=== PATIENT | male | born 1970 | race Caucasian/White ===

== ENCOUNTER 2018-05-15 09:40 | Day surgery (SDC) | payer OTHER ==
[~2018-05-15] VITALS: Ht 172.7 cm; Wt 92.5 kg
[~2018-05-15 09:40] MED LIST: ADVAIR 250-501 EACH INH; ALBUTEROL2.5 MG/3 M INH; BREO ELLIPTA I1 EACH INH; CHOLESTEROL MA1 EACH PO; CRUTCH1 EACH; DEPO-TESTO200 MG/1 M IM; DILTIAZEM ER180 MG PO; GEMFIBROZIL600 MG PO; IBUPROFEN600 MG PO; NORCO 5-325 TA1 EACH PO; SIMVASTATIN10 MG PO; TRAMADOL HCL50 MG PO
--- NOTE | 2018-05-15 12:34 | NUR ---
05/15/[address] IS AT THE BEDSIDE AND PATIENT'S QUESTIONS ARE ANSWERED.
--- NOTE | 2018-05-15 14:04 | OR ---
[facility] [address], [place] [address] Signed DATE OF OPERATION: 05/15/2018 SURGEON: Concepcion Rivera MD PREOPERATIVE DIAGNOSES: 1. Symptomatic reflux. 2. Colon screening. POSTOPERATIVE DIAGNOSES: 1. Sigmoid and left-sided diverticulosis. 2. Bulbar duodenitis. No evidence of esophagitis. No sign of hiatal hernia. PROCEDURES PERFORMED: 1. Esophagogastroduodenoscopy with biopsy. 2. Total colonoscopy to the cecum. ANESTHESIA: Intravenous sedation with fentanyl 200 mcg and Versed 9 mg (total). INDICATIONS FOR PROCEDURE: This 48-year-old white man, formerly a patient of Dr. Jus Ball and more recently Dr. Timmons and has had longstanding reflux type symptoms including nocturnal aspiration symptoms and so on. He has been variably benefitted by H2 steve and even PPI medication from [id number]. He has no dysphagia. Upper endoscopy has been considered on the basis of his reflux symptoms of long-standing, but without other formal evaluation. Additionally, the patient is of age for screening colonoscopy. He has no blood per rectum or diarrhea or constipation. He does have family history of colon cancer in his father, who is alive and well at age 69 with the disease. He understands the risks of upper endoscopy and colonoscopy including, but not limited to bleeding, infection, and perforation, and wished to proceed. FINDINGS: On upper endoscopy, the esophagus appeared normal. There was no sign of stricture, neoplasm, Bland's epithelium, or other issue. The flap valve was quite good actually. There was mild gastritis, certainly no ulceration. There was definitely inflammatory change of the bulbar duodenum, but no sign of ulceration. CLOtest was negative 30 minutes post procedure. Electronically Signed By: CONCEPCION RIVERA MD 05/15/18 1404 PATIENT NAME: JOHN AVILA OPERATIVE REPORT DATE OF : 66 REPORT #: [id number] PHYSICIAN: CONCEPCION RIVERA MD PCP: JUS BALL MD REPORT IS CONFIDENTIAL AND NOT TO BE RELEASED WITHOUT AUTHORIZATION [facility] [address], [place] [address] Signed On colonoscopy, the prep was adequate, but not great. With irrigation, good examination was undertaken. There were numerous diverticula of the sigmoid and left colon. No sign of stricture, neoplasm, polyps, or other issue. DESCRIPTION OF PROCEDURE: The patient was brought to the endoscopy suite and placed in lateral decubitus position after undergoing topical Hurricaine spray hypopharyngeal anesthesia. A bite block was placed. An Olympus video upper endoscope was passed in the hypopharynx. The vocal cords were visualized and found to be normal. The scope was advanced to the esophagus without problem; throughout its length, it was normal. Scope was passed to the stomach, which was insufflated with air. Rugal folds appeared normal as did the pylorus. The scope was passed through the pylorus into the duodenum. The second and third portions were reasonably normal. They were biopsied to assess for celiac disease and the bulbar portion examined and found to have duodenitis, but no sign of erosion or ulcer. Biopsies were obtained there as well. The scope was withdrawn to the stomach for biopsies of the antrum for both ALESSANDRA and pathologic testing. The mid stomach appeared to be minimally inflamed. The retroflexed view showed a normal flap valve overall. Various maneuvers in retroflexed position to thwart the flap valve were unsuccessful. The scope was withdrawn to the distal esophagus, confirming it to be normal. There was no sign of Bland's epithelium or other issue. Biopsies were obtained nevertheless given his clinical symptoms. Further withdrawal of the scope showed no other abnormality including the proximal esophagus. Plans were then made for colonoscopy. The table was rotated. Additional sedation was given. Digital rectal examination was normal. An Olympus video colonoscope was passed in the rectum and manipulated throughout the colon ultimately intubating the cecum itself. The ileocecal valve and appendiceal orifice were normal. Irrigation was undertaken as the prep was not as clear as one would hope for, but it was certainly adequate for the purpose. Irrigation was undertaken upon withdrawal of scope and with careful and thorough examination, colonic mucosa examined thoroughly. There were no evidence of polyps. There were diverticular changes of the sigmoid and left colon. Photographs were taken. Retroflexed view of the rectum was normal. Scope was removed. The patient was taken to recovery room in good condition. CONCLUDING DIAGNOSES: 1. Bulbar duodenitis. No evidence of esophagitis. 2. Diverticular changes of sigmoid and left colon. PLAN: We will initiate Prilosec 20 mg p.o. daily. We will see him back in 6 to 8 weeks and assess his clinical response to this medication for both duodenitis and clinical reflux type symptoms. Recommend high-fiber diet and repeat colonoscopy in 10 years Electronically Signed By: CONCEPCION RIVERA MD 05/15/18 1404 PATIENT NAME: JOHN AVILA OPERATIVE REPORT DATE OF : 66 REPORT #: [id number] PHYSICIAN: CONCEPCION RIVERA MD PCP: JUS BALL MD REPORT IS CONFIDENTIAL AND NOT TO BE RELEASED WITHOUT AUTHORIZATION [facility] [address] [place] [address] Signed or sooner if clinically indicated. MD MOIRA Burgos/ISABEL /[id number] cc: MD Irving Ding DO Copies: JUS BALL MD, FRANK E DO ~ Electronically Signed By: CONCEPCION RIVERA MD 05/15/18 1404 PATIENT NAME: MARGARITAJOHN CONCEPCION OPERATIVE REPORT DATE OF : 66 REPORT #: [id number] PHYSICIAN: CONCEPCION RIVERA MD PCP: JUS BALL MD REPORT IS CONFIDENTIAL AND NOT TO BE RELEASED WITHOUT AUTHORIZATION
== END 2018-05-15 13:00 | disposition home or self-care (01) ==
LOC: DS 09:40 → OPS 09:40 → DS 11:00 → OPS 13:00
PROVIDERS: Surgery
PROC: 0DB78ZX Excision of Stomach, Pylorus, Via Natural or Artificial Opening Endoscopic, Diagnostic (ICD-10-PCS; 2018-05-15)
PROC: 0DB68ZX Excision of Stomach, Via Natural or Artificial Opening Endoscopic, Diagnostic (ICD-10-PCS; 2018-05-15)
PROC: 0DB38ZX Excision of Lower Esophagus, Via Natural or Artificial Opening Endoscopic, Diagnostic (ICD-10-PCS; 2018-05-15)
PROC: 0DJD8ZZ Inspection of Lower Intestinal Tract, Via Natural or Artificial Opening Endoscopic (ICD-10-PCS; principal; 2018-05-15 11:00)
PROC: 0DB98ZX Excision of Duodenum, Via Natural or Artificial Opening Endoscopic, Diagnostic (ICD-10-PCS; 2018-05-15 11:00)
DX: Z12.11 Encounter for screening for malignant neoplasm of colon (principal); K57.30 Diverticulosis of large intestine without perforation or abscess without bleeding; K29.50 Unspecified chronic gastritis without bleeding; K29.80 Duodenitis without bleeding; K21.0 Gastro-esophageal reflux disease with esophagitis; I10 Essential (primary) hypertension; J45.20 Mild intermittent asthma, uncomplicated; Z88.0 Allergy status to penicillin; Z80.0 Family history of malignant neoplasm of digestive organs; Z88.8 Allergy status to other drugs, medicaments and biological substances; Z83.71 Family history of colonic polyps
CPT/HCPCS: 99153; G0500; J2250; J3010; J7120

== ENCOUNTER 2020-06-02 02:18 | Emergency (ER) | payer OTHER ==
[~2020-06-02] VITALS: Ht 172.7 cm; Wt 92.5 kg
--- OUTSIDE RECORDS SUMMARY | ~2020-06-02 | XMS | Encounter Summary ---
Demographics + + + | Address | [address] | | | [place] [address] | + + + | Home Phone | | + + + | Preferred Language | Unknown | + + + | Marital Status | | + + + | Scientology Affiliation | 1077 | + + + | Race | Unknown | + + + | Ethnic Group | Unknown | + + + Author + + + | Author | [facility] | | | and [place] | + + + | Organization | [facility] | | | and [place] | + + + | Address | Unknown | + + + | Phone | Unavailable | + + + Support + + +---------+ + | Name | Relationship | Address | Phone | + + +---------+ + | Ninfa Prieto | ECON | Unknown | | + + +---------+ + Care Team Providers + +------+ + | Care Supplier Quality Manager Name | Role | Phone | + +------+ + PCP | Unavailable | + +------+ + Encounter Details +--------+ + + + + | Date | Type | Department | Care Team | Description | +--------+ + + + + | 12/09/ | Hospital | [facility] | Conversion | Pain | | 2017 | Encounter | CONVERSION [address] | Transaction, | | | | | [address] | Provider Unknown | | | | | [place] | [phone] | | | | | [phone] | | | | | | [phone] | | | +--------+ + + + + Social History + +-------+ +--------+------+ | Tobacco Use | Types | Packs/Day | Years | Date | | | | | Used | | + +-------+ +--------+------+ | Never Assessed | | | | | + +-------+ +--------+------+ + + + | Sex Assigned at | Date Recorded | | | | + + + | Not on file | | + + + documented as of this encounter Plan of Treatment Not on filedocumented as of this encounter Procedures + +--------+ + + + | Procedure Name | Priori | Date/Time | Associated Diagnosis | Comments | | | ty | | | | + +--------+ + + + | XR CHEST 2 VIEWS | Routin | 10/31/2016 | | Results for this | | | e | 11:37 PM | | procedure are in the | | | | PST | | results section. | + +--------+ + + + documented in this encounter Results XR Chest 2 Vws (10/31/2016 11:37 PM PST) + + | Specimen | + + | | + + + + + | Narrative | Performed At | + + + | This is a non-reportable procedure without a radiologist report and | | | is used for image storage only | | + + + + + | Procedure Note | + + | Jose Eduardo Agosto Conversion - 07/08/2019 6:18 AM PDT This is a non-reportable procedure | | without a radiologist report and isused for image storage only | + + documented in this encounter Visit Diagnoses + + | Diagnosis | + + | Pain Generalized pain | + + documented in this encounter"
--- OUTSIDE RECORDS SUMMARY | ~2020-06-02 | XMS | Encounter Summary ---
Demographics + + + | Address | [address] | | | [place] [address] | + + + | Home Phone | | + + + | Preferred Language | Unknown | + + + | Marital Status | | + + + | Hoahaoism Affiliation | 1077 | + + + | Race | Unknown | + + + | Ethnic Group | Unknown | + + + Author + + + | Author | [facility] | | | and [place] | + + + | Organization | [facility] | | | and [place] | [...] Team Providers + +------+ + | Care X Ray Electronics Wiring Technician Name | Role | Phone | + +------+ + PCP | Unavailable | + +------+ + Encounter Details +--------+ + + + + | Date | Type | Department | Care Team | Description | +--------+ + + + + | 12/09/ | Hospital | [facility] | Conversion | Diagnosis unknown | | 2017 | Encounter | CONVERSION [address] | Transaction, | | | | | [address] | Provider Unknown | | | | | [place] | | | | | | [phone] | (Fax) | | | | | [phone] | | | +--------+ + + + [...] for this | | | e | 10:12 AM | | procedure are in the | | | | PST | | results section. | + +--------+ + + + documented in this encounter Results XR Chest 2 Vws (10/31/2016 10:12 AM PST) + + | Specimen | + + | | + + + + + | Narrative | Performed At | + + + | This is a non-reportable procedure without a radiologist report and | | | is used for image storage only | | + + + + + | Procedure Note | + + | Surendra Jose Eduardo Conversion - 07/08/2019 6:18 AM PDT This is a non-reportable procedure | | without a radiologist report and isused for image storage only | + + documented in this encounter Visit Diagnoses + + | Diagnosis | + + | Diagnosis unknown Other unknown and unspecified cause of morbidity or mortality | + + documented in this encounter"
--- OUTSIDE RECORDS SUMMARY | ~2020-06-02 | XMS | Encounter Summary ---
Demographics + + + | Address | [address] | | | [place] [address] | + + + | Home Phone | | + + + | Preferred Language | Unknown | + + + | Marital Status | | + + + | Religion Affiliation | 1077 | + + + | Race | Unknown | + + + | Ethnic Group | Unknown | + + + Author + + + | Author | [facility] | | | and [place] | + + + | Organization | [facility] | | | and [...] Team Providers + +------+ + | Care Final Rail Cutter Name | Role | Phone | + +------+ + PCP | Unavailable | + +------+ + Encounter Details +--------+ + + + + | Date | Type | Department | Care Team | Description | +--------+ + + + + | 03/07/ | Hospital | [facility] | Conversion | ILD (interstitial | | 2017 | Encounter | [facility] [address] | Transaction, | lung disease) ([facility]) | | | | [address] | Provider Unknown | | | | | [place], [place] | | | | | | [phone] | (Fax) | | | | | [phone] | | | +--------+ + + + [...] | + +--------+ + + + | CT CHEST HIGH | Routin | 03/07/2017 | | Results for this | | RESOLUTION WO | e | 12:54 PM | | procedure are in the | | CONTRAST | | PDT | | results section. | + +--------+ + + + documented in this encounter Results CT Chest High Resolution WO Contrast (03/07/2017 12:54 PM PDT) + + | Specimen | + + | | + + + + + | Impressions | Performed At | + + + | 1. Possibly postinflammatory subtle asymmetric reticular | | | interstitial disease in the posterior aspect of the right lower lobe. | | | Very subtle finding. Specifically no evidence of active | | | infiltrate, emphysema or interstitial lung disease. Electronically | | | signed by Nahid Wilde MD on 03/07/2017 1:33 PM | | + + + + + + | Narrative | Performed At | + + + | History: 47-year-old male with hypersensitivity pneumonitis | | | interstitial lung disease Technique: High-resolution chest CT to | | | include high resolution, fine cut imaging with prone inspiration, | | | expiration and supine sequences Automatic dose adjustment to | | | minimize patient exposure. Prior study for comparison -- chest | | | radiograph from the October 2016. Findings: Dust Collector Operator | | | demonstrates stable lung volumes to technique. Azygos lobe is normal | | | variation. Soft tissue windows through the chest reveal no | | | pericardial effusion, no cardiomegaly. No adenopathy by size criteria. | | | Airways midline, intact. Esophagus is normal. What is seen of | | | the upper abdomen reveals bilateral nephrolithiasis, small | | | calcifications in both kidneys about 3 to 4 mm in size at the most. | | | Not fully evaluated. No hydronephrosis. Lung windows to include | | | high-resolution technique demonstrates air trapping on expiration | | | views. No pulmonary fibrosis or peripheral cystic changes. | | | High-resolution images, sequence 4 demonstrates very faint reticular | | | nodular disease in the peripheral posterior right lung on images 14 | | | through 19 series 4. Possibly postinflammatory. Asymmetric to the | | | contralateral side There are no subpleural bands. No fibrosis. No | | | evidence of emphysematous pedicle destruction. No effusion, | | | pleural thickening or pleural calcifications. | | + + + + + | Procedure Note | + + | Surendra, Rad Conversion - 07/08/2019 6:18 AM PDT History: 47-year-old male with | | hypersensitivity pneumonitis interstitial lung disease Technique: High-resolution chest | | CT to include high resolution, fine cut imaging with prone inspiration, expiration and | | supine sequences Automatic dose adjustment to minimize patient exposure. Prior study for | | comparison -- chest radiograph from the October 2016. Findings: Dust Collector Operator demonstrates | | stable lung volumes to technique. Azygos lobe is normal variation. Soft tissue windows | | through the chest reveal no pericardial effusion, no cardiomegaly. No adenopathy by size | | criteria. Airways midline, intact. Esophagus is normal. What is seen of the upper | | abdomen reveals bilateral nephrolithiasis, small calcifications in both kidneys about 3 | | to 4 mm in size at the most. Not fully evaluated. No hydronephrosis. Lung windows to | | include high-resolution technique demonstrates air trapping on expiration views. No | | pulmonary fibrosis or peripheral cystic changes. High-resolution images, sequence 4 | | demonstrates very faint reticular nodular disease in the peripheral posterior right lung | | on images 14 through 19 series 4. Possibly postinflammatory. Asymmetric to the | | contralateral side There are no subpleural bands. No fibrosis. No evidence of | | emphysematous pedicle destruction. No effusion, pleural thickening or pleural | | calcifications. IMPRESSION: 1. Possibly postinflammatory subtle asymmetric reticular | | interstitial disease in the posterior aspect of the right lower lobe. Very subtle | | finding. Specifically no evidence of active infiltrate, emphysema or interstitial lung | | disease. | |High-resolution images, sequence 4 demonstrates very faint reticular nodular disease in the peripheral posterior right lung on images 14 through 19 series 4. Possibly postinflammatory . Asymmetric to the contralateral side | | | |There are no subpleural bands. No fibrosis. No evidence of emphysematous pedicle destructio n. | | | |No effusion, pleural thickening or pleural calcifications. | | | | | | | |IMPRESSION: | | | |1. Possibly postinflammatory subtle asymmetric reticular interstitial disease in the corn press operator ior aspect of the right lower lobe. Very subtle finding. | | | |Specifically no evidence of active infiltrate, emphysema or interstitial lung disease. | | | | | + + documented in this encounter Visit Diagnoses + + | Diagnosis | + + | ILD (interstitial lung disease) (HCC) Postinflammatory pulmonary fibrosis | + + documented in this encounter"
--- OUTSIDE RECORDS SUMMARY | ~2020-06-02 | XMS | Encounter Summary ---
Demographics + + + | Address | [address] | | | [place] [address] | + + + | Home Phone | | + + + | Preferred Language | Unknown | + + + | Marital Status | | + + + | Christian Affiliation | 1077 | + + + | Race | Unknown | + + + | Ethnic Group | Unknown | + + + Author + + + | Author | [facility] | | | and [place] | + + + | Organization | [facility] | | | and [place] [...] Team Providers + +------+ + | Care Licensed Certified Orthotist Name | Role | Phone | + +------+ + | Jus Avilez MD | PCP | | + +------+ + Encounter Details +--------+ + + + + | Date | Type | Department | Care Team | Description | +--------+ + + + + | 02/12/ | Orders Only | [facility] | Balwinder Conn MD | | | 2017 | | [address] | [address] | | | | | [place] | [place] | | | | | [phone] | [address] | | | | | [phone] | | | +--------+ + + + [...] | + +--------+ + + + | ALLERGEN PANEL, | Routin | 02/12/2017 | | Results for this | | [facility] | e | 11:28 AM | | procedure are in the | | | | PDT | | results section. | + +--------+ + + + | HYPERSENSITIVITY | Routin | 02/12/2017 | | Results for this | | PNEUMONITIS EXTENDED | e | 11:28 AM | | procedure are in the | | PANEL | | PDT | | results section. | + +--------+ + + + | IMMUNOGLOBULIN E | Routin | 02/12/2017 | | Results for this | | | e | 11:28 AM | | procedure are in the | | | | PDT | | results section. | + +--------+ + + + documented in this encounter Results Allergen Panel, [facility] (02/12/2017 11:28 AM PDT) + + + + + + | Component | Value | Ref Range | Performed | Pathologist | | | | | At | Signature | + + + + + + | Mite Dust | <0.10Comment: CLASS 0 | kU/L | EXTERNAL | | | Pteronyssin | BELOW DETECTION | | LAB | | | us IgE | | | | | + + + + + + | Cat Dander | <0.10Comment: CLASS 0 | kU/L | EXTERNAL | | | IgE | BELOW DETECTION | | LAB | | + + + + + + | DOG | <0.10Comment: CLASS 0 | kU/L | EXTERNAL | | | EPITHELIUM | BELOW DETECTION | | LAB | | + + + + + + | Nahid | 0.43 (H)Comment: CLASS 1 | kU/L | EXTERNAL | | | Grass IgE | LOW | | LAB | | + + + + + + | Cockroach,I | <0.10Comment: CLASS 0 | kU/L | EXTERNAL | | | ge | BELOW DETECTION | | LAB | | + + + + + + | ALLERGEN | <0.10Comment: CLASS 0 | kU/L | EXTERNAL | | | ALTERNARIA | BELOW DETECTION | | LAB | | | ALTERNATA | | | | | | IGE | | | | | + + + + + + | Comer Antwon | <0.10Comment: CLASS 0 | kU/L | EXTERNAL | | | IgE | BELOW DETECTION | | LAB | | + + + + + + | Casey | <0.10Comment: CLASS 0 | kU/L | EXTERNAL | | | IgE | BELOW DETECTION | | LAB | | + + + + + + | SILVER | <0.10Comment: CLASS 0 | kU/L | EXTERNAL | | | BIRCH, IGE | BELOW DETECTION | | LAB | | + + + + + + | [place] Tree | <0.10Comment: CLASS 0 | kU/L | EXTERNAL | | | IgE | BELOW DETECTION | | LAB | | + + + + + + | [place] Tree | <0.10Comment: CLASS 0 | kU/L | EXTERNAL | | | IgE | BELOW DETECTION | | LAB | | + + + + + + | Pigweed | <0.10Comment: CLASS 0 | kU/L | EXTERNAL | | | Grass IgE | BELOW DETECTION | | LAB | | + + + + + + | [place] | 0.14Comment: CLASS 0/1 | kU/L | EXTERNAL | | | Thistle IgE | FOR SPECIALIST USE ONLY: | | LAB | | | | CLINICAL RELEVANCE | | | | | | UNDETERMINED. | | | | + + + + + + | Allergen | <0.10Comment: CLASS 0 | kU/L | EXTERNAL | | | Ragweed, | BELOW | | LAB | | | Western | DETECTIONSPECIFIC IGE | | | | | | REFERENCE TABLECLASS | | | | | | KU/L SCORE0 | | | | | | <0.10 | | | | | | BELOW DETECTION0/1 | | | | | | 0.10 TO 0.34 | | | | | | SPECIALIST USE ONLY: | | | | | | CLINICAL RELEVANCE | | | | | | UNDETERMINED1 0.35 TO | | | | | | 0.69 LOW2 0.70 TO | | | | | | 3.49 MODERATE3 | | | | | | 3.50 TO 17.49 HIGH4 | | | | | | 17.50 TO 49.99 VERY | | | | | | HIGH5 50.00 TO 99.99 | | | | | | VERY HIGH6 | | | | | | >=100.00 VERY | | | | | | HIGHALLERGY TESTS | | | | | | PERFORMED WITH | | | | | | IMMUNOCAP(TM) | | | | | | METHOD.RESULTS WITH | | | | | | ALLERGENS IN CLASS 0/1 | | | | | | (0.10 TO 0.34 KU/L) ARE | | | | | | INTENDEDFOR SPECIALIST | | | | | | USE THE CLINICAL | | | | | | RELEVANCE IS | | | | | | UNDETERMINED. | | | | | | RESULTSWITH ALLERGENS IN | | | | | | CLASS 1 SHOULD BE | | | | | | CONSIDERED WEAKLY | | | | | | POSITIVE OREQUIVOCAL. | | | | | | CLASS 2 OR HIGHER SHOULD | | | | | | BE CONSIDERED | | | | | | POSITIVE.ALTHOUGH | | | | | | INCREASING CLASS RANGES | | | | | | (1 TO 6) ARE REFLECTIVE | | | | | | OF | | | | | | INCREASINGCONCENTRATION | | | | | | OF ALLERGEN SPECIFIC | | | | | | IGE, THIS MAY NOT | | | | | | CORRELATE WITHTHE DEGREE | | | | | | OF CLINICAL RESPONSE | | | | | | WHEN CHALLENGED WITH | | | | | | THIS SPECIFICALLERGEN. | | | | + + + + + + + + | Specimen | + + | | + + + +---------+ + + | Performing | Address | City/State/Zipcode | Phone Number | | Organization | | | | + +---------+ + + | EXTERNAL LAB | | | | + +---------+ + + Hypersensitivity Pneumonitis Ext. panel (02/12/2017 11:28 AM PDT) + + + + + + | Component | Value | Ref Range | Performed | Pathologist | | | | | At | Signature | + + + + + + | Aspergillus | NONE DETECTEDComment: | | EXTERNAL | | | fumigatus | REFERENCE RANGE: NONE | | LAB | | | 1 Ab | DETECTED Reference | | | | | | range: NDET | | | | + + + + + + | Aspergillus | NONE DETECTEDComment: | | EXTERNAL | | | fumigatus | REFERENCE RANGE: NONE | | LAB | | | 6 Ab | DETECTED Reference | | | | | | range: NDET | | | | + + + + + + | Aureobasidi | NONE DETECTEDComment: | | EXTERNAL | | | um | REFERENCE RANGE: NONE | | LAB | | | pullulans | DETECTEDTESTING INCLUDES | | | | | | ANTIBODIES DIRECTED AT | | | | | | AUREOBASIDIUM | | | | | | PULLULANS,ASPERGILLUS | | | | | | FLAVUS, ASPERGILLUS | | | | | | FUMIGATUS #1, | | | | | | ASPERGILLUS FUMIGATUS#2, | | | | | | ASPERGILLUS FUMIGATUS | | | | | | #3, ASPERGILLUS | | | | | | FUMIGATUS | | | | | | #6,MICROPOLYSPORA FAENI, | | | | | | SACCHAROMONOSPORA | | | | | | VIRIDIS, | | | | | | THERMOACTINOMYCESCANDIDU | | | | | | S, THERMOACTINOMYCES | | | | | | VULGARIS #1, AND | | | | | | THERMOACTINOMYCESSACCHAR | | | | | | I. | | | | + + + + + + | [place] | NONE DETECTEDComment: | | EXTERNAL | | | Serum Ab | REFERENCE RANGE: NONE | | LAB | | | | DETECTED | | | | + + + + + + | Micropolysp | NONE DETECTEDComment: | | EXTERNAL | | | milla lomeli, | REFERENCE RANGE: NONE | | LAB | | | IgG | DETECTED | | | | + + + + + + | T vulgaris | NONE DETECTEDComment: | | EXTERNAL | | | #1 | REFERENCE RANGE: NONE | | LAB | | | | DETECTED | | | | + + + + + + | Aspergillus | NONE DETECTEDComment: | | EXTERNAL | | | flavus | REFERENCE RANGE: NONE | | LAB | | | | DETECTED | | | | + + + + + + | A fumigatus | NONE DETECTEDComment: | | EXTERNAL | | | #2 | REFERENCE RANGE: NONE | | LAB | | | | DETECTED | | | | + + + + + + | A fumigatus | NONE DETECTEDComment: | | EXTERNAL | | | #3 | REFERENCE RANGE: NONE | | LAB | | | | DETECTED | | | | + + + + + + | S viridis | NONE DETECTEDComment: | | EXTERNAL | | | | REFERENCE RANGE: NONE | | LAB | | | | DETECTED | | | | + + + + + + | T candidus | NONE DETECTEDComment: | | EXTERNAL | | | | REFERENCE RANGE: NONE | | LAB | | | | DETECTED | | | | + + + + + + | T sacchari | NONE DETECTEDComment: | | EXTERNAL | | | | REFERENCE RANGE: NONE | | LAB | | | | DETECTEDTEST | | | | | | INFORMATION: T. SACCHARI | | | | | | AB, PRECIPITINTEST | | | | | | DEVELOPED AND | | | | | | CHARACTERISTICS | | | | | | DETERMINED BY [facility] | | | | | | LABORATORIES.SEE | | | | | | COMPLIANCE STATEMENT A: | | | | | | [employer] | | | | + + + + + + | Feather mix | NEGATIVEComment: | kU/L | EXTERNAL | | | | Reference range: | | LAB | | | | NEGATIVE | | | | + + + + + + | Beef IgE | <0.10Comment: REFERENCE | kU/L | EXTERNAL | | | | RANGE: <=0.34 | | LAB | | + + + + + + | Allergen, | <0.10Comment: REFERENCE | kU/L | EXTERNAL | | | Pork | RANGE: <=0.34 | | LAB | | + + + + + + | Phoma betae | <0.10Comment: REFERENCE | kU/L | EXTERNAL | | | | RANGE: <=0.34 Reference | | LAB | | | | range: <0.35 | | | | + + + + + + | Interpretat | SEE NOTEComment: | | EXTERNAL | | | ion: | REFERENCE INTERVAL: | | LAB | | | | ALLERGEN, | | | | | | INTERPRETATIONLESS THAN | | | | | | 0.10 KU/L......CLASS | | | | | | 0.....NO SIGNIFICANT | | | | | | LEVEL DETECTED0.10-0.34 | | | | | | KU/L...........CLASS | | | | | | 0/1...CLINICAL RELEVANCE | | | | | | UNDETERMINED0.35-0.70 | | | | | | KU/L...........CLASS | | | | | | 1.....LOW0.71-3.50 | | | | | | KU/L...........CLASS | | | | | | 2.....MODERATE3.51-17.50 | | | | | | KU/L..........CLASS | | | | | | 3.....HIGH17.51-50.00 | | | | | | KU/L.........CLASS | | | | | | 4.....VERY | | | | | | HIGH50.01-100.00 | | | | | | KU/L........CLASS | | | | | | 5.....VERY HIGHGREATER | | | | | | THAN 100.00KU/L..CLASS | | | | | | 6.....VERY HIGHALLERGEN | | | | | | RESULTS OF 0.10-0.34 | | | | | | KU/L ARE INTENDED FOR | | | | | | SPECIALIST USE ASTHE | | | | | | CLINICAL RELEVANCE IS | | | | | | UNDETERMINED. EVEN | | | | | | THOUGH INCREASING | | | | | | RANGESARE REFLECTIVE OF | | | | | | INCREASING | | | | | | CONCENTRATIONS OF | | | | | | ALLERGEN-SPECIFIC | | | | | | IGE,THESE CONCENTRATIONS | | | | | | MAY NOT CORRELATE WITH | | | | | | THE DEGREE OF | | | | | | CLINICALRESPONSE OR SKIN | | | | | | TESTING RESULTS WHEN | | | | | | CHALLENGED WITH A | | | | | | SPECIFICALLERGEN. THE | | | | | | CORRELATION OF ALLERGY | | | | | | LABORATORY RESULTS WITH | | | | | | CLINICALHISTORY AND IN | | | | | | VIVO REACTIVITY TO | | | | | | SPECIFIC ALLERGENS IS | | | | | | ESSENTIAL. ANEGATIVE | | | | | | TEST MAY NOT RULE OUT | | | | | | CLINICAL ALLERGY OR EVEN | | | | | | ANAPHYLAXIS.PERFORMED | | | | | | BY [employer],[address] | | | | | | [address], [facility],[place] | | | | | | [address] | | | | | | [phone]. | | | | | | [facility], ZOHREH BALLARD MD, | | | | | | LAB. DIRECTOR | | | | + + + + + + + + | Specimen | + + | Blood specimen | | (specimen) | + + + +---------+ + + | Performing | Address | City/State/Zipcode | Phone Number | | Organization | | | | + +---------+ + + | EXTERNAL LAB | | | | + +---------+ + + Immunoglobulin E (02/12/2017 11:28 AM PDT) + +-------+ + + + | Component | Value | Ref Range | Performed | Pathologist | | | | | At | Signature | + +-------+ + + + | Immunoglobu | 45.1 | 0.0 - 158.0 | EXTERNAL | | | jose david IgE | | kU/L | LAB | | + +-------+ + + + + + | Specimen | + + | Blood specimen | | (specimen) | + + + +---------+ + + | Performing | Address | City/State/Zipcode | Phone Number | | Organization | | | | + +---------+ + + | EXTERNAL LAB | | | | + +---------+ + + documented in this encounter Visit Diagnoses Not on filedocumented in this encounter"
--- OUTSIDE RECORDS SUMMARY | ~2020-06-02 | XMS | Clinical Summary ---
Demographics + + + | Address | [address] | | | [place] [address] | + + + | Home Phone | | + + + | Preferred Language | Unknown | + + + | Marital Status | | + + + | Lutheran Affiliation | 1077 | + + + | Race | Unknown | + + + | Ethnic Group | Unknown | + + + Author + + + | Author | [facility] | | | and [place] | + + + | Organization | [facility] | | | and [...] Team Providers + +------+ + | Care Dairy Quality Assurance Officer Name | Role | Phone | + +------+ + | Jus Avilez MD | PCP | | + +------+ + Allergies Not on File Medications Not on file Active Problems Not on file Social History + +-------+ +--------+------+ | Tobacco Use | Types | Packs/Day | Years | Date | | | | | Used | | + +-------+ +--------+------+ | Never Smoker | | | | | + +-------+ +--------+------+ + + + | Sex Assigned at | Date Recorded | | | | + + + | Not on file | | + + + Last Filed Vital Signs + + + + + | Vital Sign | Reading | Time Taken | Comments | + + + + + | Blood Pressure | 149/106 | 04/04/2017 10:14 AM | | | | | PDT | | + + + + + | Pulse | 69 | 04/04/2017 10:14 AM | | | | | PDT | | + + + + + | Temperature | 37.2 C (98.9 F) | 04/04/2017 10:14 AM | | | | | PDT | | + + + + + | Respiratory Rate | - | - | | + + + + + | Oxygen Saturation | - | - | | + + + + + | Inhaled Oxygen | - | - | | | Concentration | | | | + + + + + | Weight | 95.7 kg (211 lb) | 04/04/2017 10:14 AM | | | | | PDT | | + + + + + | Height | 172.7 cm (5' 8") | 04/04/2017 10:14 AM | | | | | PDT | | + + + + + | Body Mass Index | 32.08 | 04/04/2017 10:14 AM | | | | | PDT | | + + + + + Plan of Treatment + + +-------+ + | Health Maintenance | Due Date | Last | Comments | | | | Done | | + + +-------+ + | Vaccine: | | | | | Dtap/Tdap/Td (1 - | 7 | | | | Tdap) | | | | + + +-------+ + | Vaccine: Zoster (1 | | | | | of 2) | 8 | | | + + +-------+ + | Vaccine: Influenza | | | | | (#1) | 0 | | | + + +-------+ + Results Not on filefrom Last 3 Months
--- OUTSIDE RECORDS SUMMARY | ~2020-06-02 | XMS | Encounter Summary ---
Demographics + + + | Address | [address] | | | [place] [address] | + + + | Home Phone | | + + + | Preferred Language | Unknown | + + + | Marital Status | | + + + | Church Affiliation | 1077 | + + + | Race | Unknown | + + + | Ethnic Group | Unknown | + + + Author + + + | Author | [facility] | | | and [place] | + + + | Organization | [facility] | | | and [place] | [...] Team Providers + +------+ + | Care Bin Tripper Operator Name | Role | Phone | + +------+ + PCP | Unavailable | + +------+ + Encounter Details +--------+ + + + + | Date | Type | Department | Care Team | Description | +--------+ + + + + | 03/07/ | Hospital | [facility] | Conversion | ILD (interstitial | | 2017 | Encounter | PULMONARY FUNCTION | Transaction, | lung disease) ([facility]) | | | | LAB [address] | Provider Unknown | | | | | [place] | | | | | | [phone] | (Fax) | | | | | [phone] | | | +--------+ + + + [...] + + documented as of this encounter Procedure Notes Balwinder Conn MD - 03/07/2017 8:38 PM PDT Procedures by Balwinder Conn MD at 03/07/172037 Author: Balwinder Conn MD Service: Crnp Author Type: Physician Filed: 03/07/172038 Date of Service: 03/07/172037 Status: Signed Therapist Asst: Balwinder Conn MD (Physician) Procedure Orders: 1. Complete PFT - Pre & Post Spirometry, PLETH & DLCO [[id number]] ordered by Balwinder Conn MD at 02/12/[address] [place] [address] Service: Pulmonology PULMONARY FUNCTION TEST Name : Lorenzo Prieto : 1970 FINDINGS SPIROMETRY: 1. FEV-1/FVC is 79 which is normal 2. FEV-1 is 3.2/86 which is Normal. 3. FVC is 4.1/86 which isNormal . 4.There is no significant bronchodilator response. LUNG VOLUMES: 1. TLC is 5.73/87 which is Normal. 2. RV/TLC is normal. DIFFUSING CAPACITY: Diffusing capacity is 29.6/100 which is normal. INTERPRETATION: The spirometry is normal. There is no significant bronchodilator response. The lung volume s are normal. The diffusing capacity is normal. Balwinder Conn MD 03/07/2017 8:38 PM documented in this enc ounter Plan of Treatment Not on filedocumented as of this encounter Visit Diagnoses + + | Diagnosis | + + | ILD (interstitial lung disease) (HCC) Postinflammatory pulmonary fibrosis | + + documented in this encounter"
[2020-06-02] MEDS ORDERED: PERCOCET 5-3251 EACH PO (04:25)
[2020-06-02] MEDS ORDERED: FLOMAX0.4 MG PO (04:25)
== END 2020-06-02 04:40 | disposition home or self-care (01) ==
LOC: ED 02:18
DX: N20.0 Calculus of kidney (principal); I10 Essential (primary) hypertension; E78.00 Pure hypercholesterolemia, unspecified; J45.909 Unspecified asthma, uncomplicated; Z88.0 Allergy status to penicillin; Z88.8 Allergy status to other drugs, medicaments and biological substances; Z79.899 Other long term (current) drug therapy
CPT/HCPCS: 74177; 80053; 81001; 83690; 85025; 96375; 99284-25; J1170; J1885; J2405; J7030; Q9967

== ENCOUNTER 2022-02-11 11:50 | Emergency (ER) | payer OTHER ==
[~2022-02-11] VITALS: Ht 172.7 cm; Wt 91.3 kg
[~2022-02-11 11:50] MED LIST changes: +FLOMAX0.4 MG PO; +PERCOCET 5-3251 EACH PO
--- OUTSIDE RECORDS SUMMARY | 2022-02-11 11:54 | XMS ---
PreManage Notification: JOHN AVILA Security Fitting Room Maintenance Mechanic Events No recent Security Events currently on file CRITERIA MET - FRANKP CARE PROVIDERS TYRON ARSHAD Physician Tools Developer Current PHONE: Unknown Milvia has no Care Guidelines for this patient. EOwen VISIT COUNT (12 MO.) 1 DOLLY Sahu TOTAL 1 NOTE: Visits indicate total known visits. ED/UCC VISIT TRACKING (12 MO.) 02/11/2022 11:51 DOLLY Gupta [place] TYPE: Emergency COMPLAINT: - R SIDE LOWER ABD/GROIN PAIN INPATIENT VISIT TRACKING (12 MO.) No inpatient visits to display in this time frame [email or web address]
[2022-02-11] MEDS ORDERED: ONDANSETRON ODT8 MG PO (14:08)
[2022-02-11] MEDS ORDERED: FLOMAX0.4 MG PO (14:08)
[2022-02-11] MEDS ORDERED: HYDROCODON-ACE1 EA11 PO (14:08)
== END 2022-02-11 14:24 | disposition home or self-care (01) ==
LOC: ED 11:50
DX: N20.2 Calculus of kidney with calculus of ureter (principal); I10 Essential (primary) hypertension; E78.00 Pure hypercholesterolemia, unspecified; J45.909 Unspecified asthma, uncomplicated; Z88.0 Allergy status to penicillin; Z88.8 Allergy status to other drugs, medicaments and biological substances; Z88.5 Allergy status to narcotic agent; Z79.899 Other long term (current) drug therapy; Z79.51 Long term (current) use of inhaled steroids
CPT/HCPCS: 36415; 80048; 81001; 85025; 96374; 96375; 99284-25; J1170; J1885; J2405; J7030

== ENCOUNTER 2023-08-01 06:15 | Day surgery (SDC) | payer OTHER ==
[~2023-08-01] VITALS: Ht 172.7 cm; Wt 95.5 kg
[~2023-08-01 06:15] MED LIST changes: +CELECOXIB200 MG PO; +FASENRA PE30 MG/1 ML SQ; +FISH OIL 500 M1 EAC2 PO; +GABAPENTIN600 MG PO; +HYDROCODON-ACE1 EA11 PO; +OMEPRAZOLE20 MG PO; +ONDANSETRON ODT8 MG PO; +OXYCODONE HCL5 MG PO; +SENNA LAX8.6 MG PO; +SINGULAIR10 MG PO; +VENTOLIN HFA18 GM INH; +XARELTO10 MG PO
[2023-08-01 06:33] VITALS: BP 136/91
--- NOTE | 2023-08-01 08:43 | NUR ---
08/01/23 0843 Shef[address] Hairston 0835- PT ARRIVES TO PACU IN LEFT LATERAL SEMI SANTOYO POSITION. O2 AT 2L PER NC, LR INFUSING TO RH IV. PT ABD FIRM, ENCOURAGED TO PASS GAS. ALL MONITORS APPLIED. PT DROWSY AND RESTING INTERMITTENTLY. BREATHING EVEN AND NON LABORED. WILL CONTINUE TO MONITOR.
[2023-08-01 09:12] VITALS: BP 150/106
--- NOTE | 2023-08-01 12:14 | NUR ---
PT CONSENTED TO PRAYER. PRAYED FOR SUCCESSFUL PROCEDURE CONTINUED HEALTH.
--- NOTE | 2023-08-02 10:44 | OR ---
[facility] [address], [place] [address] Signed DATE OF OPERATION: 08/01/2023 SURGEON: Concepcion Rivera MD PREOPERATIVE DIAGNOSES: 1. Clinical gastroesophageal reflux, ongoing PPI therapy. 2. Family history of colon cancer (father). POSTOPERATIVE DIAGNOSES: 1. Normal upper endoscopy, no evidence of esophagitis, gastritis, or hiatal hernia. 2. Diverticulosis of sigmoid and left colon. 3. Small polyp, left colon. PROCEDURES: 1. Esophagogastroduodenoscopy with biopsy. 2. Total colonoscopy to cecum with cold morcellation polypectomy x1. ANESTHESIA: Intravenous sedation, fentanyl 200 mcg and Versed 11 mg. INDICATIONS FOR THE PROCEDURE: This 53-year-old white man, is a patient of Dr. Fabian [facility]. He last underwent colonoscopy in 2018 as well as concurrent upper endoscopy. He does have family history of colon cancer in his father. The patient has no symptoms of bleeding, diarrhea, or constipation, but occasional bouts of constipation, for which fiber supplements are helpful. He does have occasional dysphagia and concurrent "asthma." He takes Prilosec on a daily basis. He has no family history of esophageal or stomach cancer. He is here for upper endoscopy and colonoscopy on the basis of those historical findings. He understands the risk of bleeding, infection, and perforation, wished to proceed. FINDINGS: Upper endoscopy was essentially normal. There was no evidence of Bland epithelium, esophagitis, stricture, or other abnormality of the esophagus. The stomach was normal. The flap valve was normal as was the duodenum. CLOtest was negative 15 minutes post procedure. Colonoscopy showed well prepped colon. Numerous diverticula were noted in the sigmoid and left colon. There was a small flat-appearing polyp of the left colon, which was excised with cold morcellation technique. Electronically Signed By: CONCEPCION RIVERA MD 08/02/23 1044 PATIENT NAME: JOHN AVILA OPERATIVE REPORT DATE OF : 66 REPORT #: [id number] PHYSICIAN: CONCEPCION RIVERA MD PCP: JANNETH GALLO REPORT IS CONFIDENTIAL AND NOT TO BE RELEASED WITHOUT AUTHORIZATION [facility] [address], [place] [address] Signed DESCRIPTION OF PROCEDURE: Esophagogastroduodenoscopy: The patient was brought to the endoscopy suite, given topical lidocaine hypopharyngeal anesthesia. He was given intravenous sedation to the point of slurred speech and nystagmus with full cardiopulmonary monitoring. An Olympus video upper endoscope was passed into the hypopharynx. The vocal cords appeared normal. Scope was advanced to the esophagus. The patient was somewhat intolerant of this. The scope was removed. The distal spray given an additional sedation also administered. Reintroduction of the scope allowed easy passage into the esophagus and into the stomach, and ultimately to the duodenum. The duodenum appeared normal. Biopsies were obtained to assess for celiac disease. The scope was withdrawn and stomach appeared normal including normal rugal folds and antral motility. The pylorus was normal. Biopsies were taken of the antrum for both ALESSANDRA and pathologic testing. Retroflexed view was undertaken, showing a good flap valve. No sign of hiatal hernia. Scope was withdrawn and distal esophageal biopsies were obtained. The mucosa was normal. Further withdrawal allowed for midesophageal biopsy to assess for eosinophilic esophagitis. The scope was then withdrawn and removed. Colonoscopy: Plans were then made for colonoscopy. Digital rectal examination was performed and was normal. An Olympus video colonoscope was passed into the rectum and manipulated throughout the colon noting numerous diverticula of the sigmoid and left colon. The scope was ultimately passed to the right colon with visualization of the cecum. Irrigation was undertaken as necessary. The scope was then withdrawn. Examination showed no abnormality until about 90 cm from the anal verge, where a small flat-appearing polyp was noted, this was excised with cold morcellation technique. Further withdrawal showed diverticula once again. Retroflexed view of the rectum was normal. Scope was removed. The patient was taken to the recovery room in good condition. CONCLUDING DIAGNOSES: 1. Clinical gastroesophageal reflux without sign of hiatal hernia or esophagitis currently. The patient is well controlled his symptoms with Prilosec and it is safe to proceed continued use daily (see Tawny Palacios and Lester winter issue in 2020). 2. Diverticulosis of colon, small polyp. PLAN: We would recommend repeat colonoscopy in 3-5 years depending on histology of the polyp. Certainly, no later than five years based on family history of colon cancer in his father. He will return to the ongoing care of Dr. Fabian in [place]. Electronically Signed By: CONCEPCION RIVERA MD 08/02/23 1044 PATIENT NAME: JOHN AVILA OPERATIVE REPORT DATE OF : 66 REPORT #: [id number] PHYSICIAN: CONCEPCION RIVERA MD PCP: JANNETH GALLO REPORT IS CONFIDENTIAL AND NOT TO BE RELEASED WITHOUT AUTHORIZATION [address] [address] Signed Concepcion Rivera MD JM/MODL /[id number] cc: Dr. Fabian Copies: ~ Electronically Signed By: CONCEPCION RIVERA MD 08/02/23 1044 PATIENT NAME: JOHN AVILA OPERATIVE REPORT DATE OF : 66 REPORT #: [id number] PHYSICIAN: CONCEPCION RIVERA MD PCP: JANNETH GALLO REPORT IS CONFIDENTIAL AND NOT TO BE RELEASED WITHOUT AUTHORIZATION
--- NOTE | 2023-08-05 13:54 | PATH ---
[facility] [address], [place] [address] Signed SPECIMEN(S): A DUODENAL BIOPSY SPECIMEN(S): B ANTRUM/PYLORUS BIOPSY SPECIMEN(S): C LOWER ESOPHAGEAL BIOPSY SPECIMEN(S): D MID ESOPHAGEAL BIOPSY SPECIMEN(S): E DESCENDING/LEFT COLON POLYP SPECIMEN SOURCE: A. DUODENAL BIOPSY B. ANTRUM/PYLORUS BIOPSY C. LOWER ESOPHAGEAL BIOPSY D. MID ESOPHAGEAL BIOPSY E. DESCENDING/LEFT COLON POLYP CLINICAL HISTORY: Pre-op: Probable reflux esophagitis, sigmoid and left side diverticulosis. Post-op: Normal EGD, diverticulosis, polyp. FINAL PATHOLOGIC DIAGNOSIS: A. Duodenum, biopsies: - Unremarkable duodenal mucosa, negative for significant villous blunting. B. Antrum/pylorus, biopsies: - Benign gastric mucosa with vascular congestion, negative for active inflammation. - No Helicobacter pylori bacteria are detected by HE stain. C. Lower esophagus, biopsies: - Benign squamous esophageal mucosa with vascular congestion. - Negative for Bland's (goblet cell) metaplasia, dysplasia or malignancy. D. Mid esophagus, biopsies: - Benign squamous esophageal mucosa, negative for increased eosinophils. E. Descending/left colon polyp, biopsies: - Tubular adenoma. AMB MICROSCOPIC EXAMINATION: Histologic sections of all submitted blocks are examined by light microscopy. These findings, together with the gross examination, support the pathologic diagnosis. AMB GROSS DESCRIPTION: A. The specimen, labeled and designated "[place] duodenal biopsy," is received PATIENT NAME: JOHN AVILA PATHOLOGY DATE OF : 66 REPORT #: [id number] PHYSICIAN: ANH OJEDA PCP: JANNETH GALLO REPORT IS CONFIDENTIAL AND NOT TO BE RELEASED WITHOUT AUTHORIZATION [facility] [address], [place] [address] Signed in formalin and consists of two frost soft tissue fragments, ranging from 0.1-0.2 cm. Entirely submitted in (A1). B. The specimen, labeled and designated "[place], antrum biopsy," is received in formalin and consists of two frost soft tissue fragments, ranging from 0.1-0.2 cm. Entirely submitted in (B1). C. The specimen, labeled and designated "[place], lower esophagus biopsy," is received in formalin and consists of one frost soft tissue fragment, 0.3 cm. Entirely submitted in (C1). D. The specimen, labeled and designated "[place], mid esophagus biopsy," is received in formalin and consists of two frost soft tissue fragments, ranging from 0.1-0.2 cm. Entirely submitted in (D1). E. The specimen, labeled and designated "[place], descending colon polyp," is received in formalin and consists of two frost soft tissue fragments, ranging from 0.1 cm. Entirely submitted in (E1). JS (under the direct supervision of a pathologist) The Gross Description was prepared using a voice recognition system. The report was reviewed for accuracy; however, sound-alike word errors, addition and/or deletions may occur. If there is any question about this report, please contact Client Services. ADDITIONAL NOTES: Immunohistochemical and/or in situ hybridization studies if performed in this case included appropriate positive controls that reacted as expected. This test was developed and its performance characteristics determined by [facility]. It has not been cleared or approved by the U.S. Food and Drug Administration. The FDA has determined that such clearance or approval is not necessary. This test is used for clinical purposes. It should not be regarded as investigational or for research. [facility] is certified under the Clinical Laboratory Improvement Amendments of 1988 (CLIA) as qualified to perform high complexity clinical laboratory testing. PERFORMING LABORATORY: Technical component was performed by [facility], [address] [place] [address] (CLIA# [id number]). Professional interpretation was performed by [facility] [address] [facility] [phone] [id number] Diagnostician: Edelmira Brambila MD Pathologist PATIENT NAME: JOHN AVILA PATHOLOGY DATE OF : 66 REPORT #: [id number] PHYSICIAN: ANH OJEDA PCP: JANNETH GALLO REPORT IS CONFIDENTIAL AND NOT TO BE RELEASED WITHOUT AUTHORIZATION [address] [place], [place] [address] Signed Electronically Signed 08/05/2023 Copies: ~ PATIENT NAME: JOHN AVILA PATHOLOGY DATE OF : 66 REPORT #: [id number] PHYSICIAN: ANH OJEDA PCP: JANNETH GALLO REPORT IS CONFIDENTIAL AND NOT TO BE RELEASED WITHOUT AUTHORIZATION
== END 2023-08-01 09:20 | disposition home or self-care (01) ==
LOC: DS 06:15 → OPS 06:15 → DS 07:30 → OPS 09:20 → DS 10:00
PROVIDERS: ATTEND Surgery
PROC: 0DB68ZX Excision of Stomach, Via Natural or Artificial Opening Endoscopic, Diagnostic (ICD-10-PCS; principal; 2023-08-01 07:30)
PROC: 0DBE8ZX Excision of Large Intestine, Via Natural or Artificial Opening Endoscopic, Diagnostic (ICD-10-PCS; 2023-08-01 07:30)
DX: K31.89 Other diseases of stomach and duodenum (principal); K21.9 Gastro-esophageal reflux disease without esophagitis; D12.4 Benign neoplasm of descending colon; K57.30 Diverticulosis of large intestine without perforation or abscess without bleeding; R13.19 Other dysphagia; I10 Essential (primary) hypertension; J45.909 Unspecified asthma, uncomplicated; Z80.0 Family history of malignant neoplasm of digestive organs
CPT/HCPCS: 88305; 99153; G0500; J0690; J2250; J3010; J7121

== ENCOUNTER 2025-02-13 12:25 | Emergency (ER) | payer OTHER ==
[~2025-02-13] VITALS: Ht 172.7 cm; Wt 98.0 kg
[~2025-02-13 12:25] MED LIST changes: +ADULT ASPIRIN R81 MG PO; +CARAFATE1 GM PO; +CELEBREX100 MG PO; +LISINOPRIL20 MG PO
[2025-02-13] MEDS ORDERED: HYDROmorphone HCL 1 MG/ML SYR IV PRN (12:45)
[2025-02-13] MEDS ORDERED: KETOROLAC TROMETHAMINE 30 MG/ML VIAL IV ONE (12:45)
[2025-02-13] MEDS ORDERED: KETOROLAC TROMETHAMINE 15 MG/ML VIAL IV ONE (12:45)
[2025-02-13] MEDS ORDERED: ondansetron HCL 4 MG/2 ML VIAL IV PRN (12:45)
[2025-02-13] MEDS ORDERED: SODIUM CHLORIDE 0.9% 1,000 ML IV ONE (12:45)
[2025-02-13 12:50] LABS: BASOPHILS 0.2 % (0-2); EOSINOPHILS 0.2 % (0-6); HEMOGLOBIN 15.6 g/dL (12.0-18.0); LYMPHOCYTES 7.9 % (24-44); MCH 29.6 (27-36); MCHC 33.8 g/dl (30-36); MCV 87.5 fl (81-99); MONOCYTES 3.2 % (0-12); NEUTROPHILS 88.5 % (39-80); PLATELET COUNT 337 K/uL (140-440); RBC 5.26 M/ul (4.3-5.7); RDW 13.6 (10.5-15.0)
[2025-02-13 13:10] LABS: ALBUMIN 4.1 g/dL (3.4-5.0); ALBUMIN/GLOBULIN RATIO 1.17 (1.1-2.4); ANION GAP 15.7 (7-21); BILIRUBIN, TOTAL 0.5 mg/dL (0.2-1.0); BUN/CREATININE RATIO 13.04 (6.0-28.6); CALCIUM 9.6 mg/dL (8.5-10.1); CREATININE, SERUM 1.61 mg/dL (0.70-1.30); POTASSIUM 4.7 mmol/L (3.5-5.1); PROTEIN, TOTAL 7.6 g/dL (6.4-8.2)
[2025-02-13 13:13] LABS: BILIRUBIN, URINE NEGATIVE (negative); BLOOD/HGB, URINE NEGATIVE (Negative); KETONE, URINE NEGATIVE (Negative); PH, URINE 6.5 (5-7)
[2025-02-13 13:14] LABS: COLLECTION TYPE, URINE CLEAN CATCH; LEUK ESTERASE, URINE NEGATIVE (negative); NITRITE, URINE NEGATIVE (negative)
[2025-02-13] MEDS ORDERED: TAMSULOSIN HCL 0.4 MG CAP PO ONE (13:15)
[2025-02-13] MEDS ORDERED: OXYCODONE/APAP 5/325 TAB PO ONE (14:45)
[2025-02-13] MEDS ORDERED: PERCOCET 7.5-31 EACH PO (15:01)
[2025-02-13] MEDS ORDERED: ONDANSETRON ODT8 MG PO (15:01)
[2025-02-13 15:05] VITALS: BP 121/75
== END 2025-02-13 15:05 | disposition home or self-care (01) ==
LOC: ED 12:25
PROVIDERS: Emergency Medicine
DX: N20.1 Calculus of ureter (principal); I10 Essential (primary) hypertension; J45.909 Unspecified asthma, uncomplicated; Z88.0 Allergy status to penicillin; Z88.8 Allergy status to other drugs, medicaments and biological substances; Z79.899 Other long term (current) drug therapy
CPT/HCPCS: 36415; 80053; 81003; 85025; 85060; 96374; 96375; 99284-25; J1171; J1885; J2405; J7030